=== PATIENT | female | born 1995 | race Caucasian/White ===

== ENCOUNTER 2016-07-22 05:18 | Day surgery (SDC) | payer BC, OTHER ==
[2016-07-09 15:48] VITALS: BMI 23.0
[~2016-07-22] VITALS: Ht 160 cm; Wt 59.1 kg
[~2016-07-22 05:18] MED LIST: BCPILLS PO
[2016-07-22 05:45] VITALS: BP 114/62; PULSE 66; TEMP 36.6; O2SAT 99; Ht 160 cm; Wt 59.1 kg
[2016-07-22] MEDS ORDERED: LACTATED RINGER'S 1000ML 1,000 ML IV SCH ×2 (06:00→08:11)
--- NOTE | 2016-07-22 06:19 | History & Physical Bridge Note ---
H&P Re-Evaluation Bridge Note: I have examined the patient, reviewed the History & Physical and in the interval since the performance of the History & Physical I have noted the following changes of clinical significance: No changes noted mother at bedside
[2016-07-22] MEDS ORDERED: SCOPOLAMINE 1.5 MG TDSY TD ONE ×2 (06:41→06:45)
[2016-07-22] MEDS ORDERED: PROPOFOL IV EMULSION 10 MG/ML 20 ML VIAL IV ONE (06:43)
[2016-07-22] MEDS ORDERED: EpHEDrine SULFATE INJ 50 MG/ML AMP ONE (06:43)
[2016-07-22] MEDS ORDERED: SUCCINYLCHOLINE CHLORIDE 20 MG/ML 10 ML VIAL IV ONE (06:43)
[2016-07-22] MEDS ORDERED: GLYCOPYRROLATE INJ 0.2 MG/ML VIAL ONE (06:43)
[2016-07-22] MEDS ORDERED: ROCURONIUM BROMIDE 10 MG/ML 5 ML VIAL ONE (06:43)
[2016-07-22] MEDS ORDERED: ONDANSETRON INJ 2 MG/ML 2 ML VIAL ONE (06:43)
[2016-07-22] MEDS ORDERED: DEXAMETHASONE SOD INJ 4 MG/ML VIAL ONE ×2 (06:43→07:53)
[2016-07-22] MEDS ORDERED: PHENYLEPHRINE HCL INJ 10 MG/ML VIAL ONE (06:43)
[2016-07-22] MEDS ORDERED: LIDOCAINE HCL 2% 2 ML VIAL (20MG/ML) ONE (06:43)
[2016-07-22] MEDS ORDERED: NEOSTIGMINE METHYLSULFATE 5 MG/5 ML SYR ONE (06:43)
[2016-07-22] MEDS ORDERED: MIDAZOLAM HCL 1 MG/ML 2ML VIAL ONE (06:44)
[2016-07-22] MEDS ORDERED: FENTANYL CITRATE INJ 50 MCG/1 ML 2 ML VIAL ONE ×3 (06:44→08:16)
[2016-07-22] MEDS ORDERED: ATROPINE SULFATE 0.1 MG/ML 5ML SYR IV PRN (06:45)
[2016-07-22] MEDS ORDERED: SCOPOLAMINE 1.5 MG TDSY TD SCH (06:45)
[2016-07-22] MEDS ORDERED: EpHEDrine SULFATE INJ 50 MG/ML AMP IV PRN (06:45)
[2016-07-22] MEDS ORDERED: ONDANSETRON INJ 2 MG/ML 2 ML VIAL IV PRN ×2 (06:45→08:15)
[2016-07-22] MEDS ORDERED: LIDOCAINE/EPINEPHRINE 1% 20 ML VIAL ONE (06:58)
--- NOTE | 2016-07-22 08:02 | [facility] Post Operative Brief Note ---
Immediate Operative Summary Operative Date Jul 22, 2016. Pre-Operative Diagnosis Biliary dyskinesia Post-Operative Diagnosis Biliary dyskinesia cc Procedure(s) Performed Laproscopic Cholecystectomy with intraoperative cholangiogram Surgeon Dr. Juma Araujo Signals Intelligence Superintendent Surgeon(s) Mick Islas PA-C Estimated Blood Loss 3ml Findings adhesions to gallbladder Specimens A. Gallbladder and Contents
[2016-07-22] MEDS ORDERED: LIDOCAINE/EPINEPHRINE 1% 20 ML VIAL INJ ONE (08:03)
[2016-07-22] MEDS ORDERED: CONRAY 60% 50 ML VIAL INSTIL ONE (08:03)
[2016-07-22] MEDS ORDERED: TRAM-453 PO (08:09)
--- NOTE | 2016-07-22 08:10 | Discharge Instructions ---
Discharge Instructions Visit Reason for Visit: Biliary Dyskinesia Discharge Discharge Diagnosis / Problem: laparoscopic cholecystectomy Activity Recommendations Activity Limitations: per Instructions/Follow-up section Lifting Limitations: no more than 10 pounds Shower/Bathe: tomorrow Driving or Machine Use: resume 3 days after discharge Anesthesia . Post Anesthesia Instructions: If you have had General Anesthesia or IV Sedation: * Do not drive today. * Resume driving when surgeon permits. * Do not make important decisions or sign legal documents today. * Call surgeon for: 1. Temperature elevations greater than 101 degrees F. 2. Uncontrollable pain. 3. Excessive bleeding. 4. Persistent nausea and vomiting. 5. Medication intolerance (nausea, vomiting or rash). * For nausea and vomiting use only clear liquids such as: tea, soda, bouillon until nausea subsides, then gradually increase diet as tolerated. * If you have any concerns or questions, call your surgeon's office. If physician is unavailable and it is an emergency, call 911 or go to the nearest emergency room. . Instructions / Follow-Up Instructions / Follow-Up Dr. Araujo in 1 week, call [phone] if you do not already have an appt Diet Recommendations Recommended Home Diet: no limitations Procedures Procedures Performed: Laproscopic Cholecystectomy with intraoperative cholangiogram Pending Studies Studies pending at discharge: no Medical Emergencies . Who to Call and When: Medical Emergencies: If at any time you feel your situation is an emergency, please call 911 immediately. . Non-Emergent Contact Non-Emergency issues call your: Surgeon Call Non-Emergent contact if: you have a fever, temperature is above 101, your pain is not controlled . . "Provider Documentation" section prepared by Mick Pearce.
[2016-07-22] MEDS ORDERED: TRAMADOL HCL 50 MG TAB PO PRN (08:15)
[2016-07-22] MEDS ORDERED: MoRPHine SULFATE 2 MG/ML CARP IV PRN (08:15)
--- NOTE | 2016-07-22 08:17 | DIAGNOSTIC IMAGING REPORT ---
INTRAOPERATIVE CHOLANGIOGRAM CLINICAL HISTORY: Laparoscopic cholecystectomy. COMPARISON STUDY: Right upper quadrant ultrasound June 13, 2016. FLUOROSCOPY TIME: 1 second. FINDINGS: 2 fluoroscopic images of the right upper quadrant were obtained during an intraoperative cholangiogram. These images demonstrate contrast within the duodenum. There is no biliary ductal dilatation. No filling defects are identified within the common bile duct to suggest choledocholithiasis. IMPRESSION: No evidence of choledocholithiasis. Electronically signed by: Marco A Crisostomo M.D. 07/22/2016 8:15 AM Dictated Date/Time: 07/22/2016 8:14 AM
--- NOTE | 2016-07-22 08:37 | OPERATIVE REPORT ---
DATE OF OPERATION: 07/22/2016 SURGEON: Dr. Araujo. CONCIERGE: AINSLEY Mazariegos. PREOPERATIVE DIAGNOSIS: Biliary dyskinesia. POSTOPERATIVE DIAGNOSIS: Same, with likely chronic cholecystitis. PROCEDURE: Laparoscopic cholecystectomy, intraoperative cholangiogram. SUMMARY: The patient was brought into the operating room theater under general anesthesia, the abdomen was prepped with Betadine solution and properly draped. We made a small transverse incision below the skin markings that she had for supraumbilical ring. An incision was made, deepened through subcutaneous tissue, Veress needle followed by CO2, followed by 5 mm trocar. Point of entry inspected and no injury identified. Under direct visualization, we placed a 5 mm epigastric, two 5 mm subcostal ports with preemptive local analgesia 1% Xylocaine with epinephrine. The gallbladder was visualized and actually we could see that the fundus of the gallbladder had adhesions to it. These were filamentous adhesions. We elevated and took those down mostly by blunt dissection, some of them needed sharp dissection. These were pretty much on the whole undersurface of the gallbladder to the neck of the gallbladder. Once we were able then to elevate the gallbladder up, we identified a structure that was coming anterior to the cystic duct and likely the artery. We got around it, created a window, double clipped it proximally and once distally and divided it. The cystic duct was then isolated. We created a window posteriorly, it appeared to be normal caliber or even smaller. We had trouble with the video system at this time and this was adjusted. We could not get it to the brightness to focus completely. At this point, we doubly clipped the cystic duct proximally. A small opening in the cystic duct was made. A #4 ureteral catheter transversing the abdominal wall and an Angiocath were positioned in the cystic duct. X-ray which was taken, showed free flow into the duodenum. No obstruction. Actually the cystic duct was going into probably an accessory duct in the right lobe of the liver or possibly the right hepatic duct, although the bifurcation appeared to be quite low if this were the case. We clamped it right inferior to where the catheter went into the cystic duct, which was small in nature, doubly clipped and divided it. Then we used the electrocautery to free up the gallbladder from the liver bed . We were able then to leave the posterior peritoneum intact. The gallbladder was elevated. We checked out the liver bed, it appeared to be free of any oozing or any bilious drainage. The gallbladder was placed in an Endopouch and taken out intact through the epigastric port. The subhepatic and suprahepatic area were then sectioned out copiously, appeared satisfactory. We placed a camera in the subcostal port to visualize the umbilical entry site. No adhesions were appreciated. At this point individual trocars were taken out under direct visualization and last the umbilical trocar. Wounds were closed with 4-0 Monocryl. Steri-Strips applied. The procedure was tolerated well by the patient. Estimated blood loss approximately 3 mL. The patient was taken to recovery in good condition. I attest to the content of the Intraoperative Record and any orders documented therein. Any exceptions are noted below. MTDD
[2016-07-22] MEDS: FENTANYL CITRATE INJ 50 MCG/1 ML 2 ML VIAL IV PRN ×3 (08:48→08:58)
--- NOTE | 2016-07-22 09:18 | Anesthesiology Progress Note ---
Anesthesia Post Op Note Date & Time Jul 22, 2016 at 09:18 Vital Signs Pain Intensity: 4 Vital Signs Past 12 Hours Date Time Temp Pulse Resp B/P Pulse Ox O2 Delivery O2 Flow Rate FiO2 07/22/16 09:00 86 20 116/64 95 Room Air 07/22/16 08:50 81 20 124/72 95 Room Air 07/22/16 08:40 79 20 127/70 100 Mask 10 07/22/16 08:30 83 12 125/69 100 Mask 10 07/22/16 08:22 36.1 83 12 124/60 100 Mask 10 07/22/16 05:45 36.6 66 16 114/62 99 Room Air Notes Mental Status: alert / awake / arousable, participated in evaluation Pt Amnestic to Procedure: Yes Nausea / Vomiting: adequately controlled Pain: adequately controlled Airway Patency, RR, SpO2: stable & adequate BP & HR: stable & adequate Hydration State: stable & adequate Anesthetic Complications: no major complications apparent
[2016-07-22 09:30] VITALS: BP 116/64; PULSE 81; TEMP 36.6; O2SAT 93
[2016-07-22 10:00] VITALS: BP 112/56; PULSE 91; TEMP 36.7; O2SAT 96
[2016-07-22 10:30] VITALS: BP 108/51; PULSE 94; TEMP 36.6; O2SAT 95
[2016-07-22] MEDS ORDERED: TRAMADOL HCL 50 MG TAB PO STA (10:49)
[2016-07-22] MEDS ORDERED: TRAMADOL HCL 50 MG TAB ONE (10:57)
== END 2016-07-22 11:10 | disposition home or self-care (01) ==
LOC: C.ACU 05:18
PROVIDERS: ATTEND Surgery
DX: K80.10 Calculus of gallbladder with chronic cholecystitis without obstruction (principal); R59.9 Enlarged lymph nodes, unspecified; Z98.890 Other specified postprocedural states; Z88.5 Allergy status to narcotic agent